=== PATIENT | male | born 1975 | race Caucasian/White ===

== ENCOUNTER 2016-12-01 19:55 | Emergency (ER) | payer OTHER ==
[~2016-12-01] VITALS: Ht 177.8 cm; Wt 64.0 kg
[2016-12-01 20:02] VITALS: Ht 177.8 cm; Wt 64.0 kg
--- NOTE | 2016-12-01 22:19 | RADRPT ---
PROCEDURE: CT Head without contrast. CLINICAL INDICATION: Headaches TECHNIQUE: The study was performed utilizing a GE 64-slice multidetector CT scanner. Direct spiral axial CT images of the brain were obtained from the vertex to the skull base without contrast. Cor onal and sagittal reformat images are provided. The CTDI vol is 44.84 mGy and the DLP is 720.23 mGy -cm. The images were reviewed on a PACS workstation. COMPARISON: No prior studies are available for comparison. FINDINGS: The ventricles and cortical sulci are within normal limits. A polo cisterna magna is seen. The ngo- white matter differentiation is maintained. No intra or extra-axial fluid collection or mass effect or shift in the midline structures is seen. The visualized paranasal sinuses, mastoid air cells, o rbits, and calvarium are unremarkable. IMPRESSION: No acute intracranial pathology. RPTAT: HPNM Physician Alexis Date Time Electronically viewed and signed by Physician Alexis on 12/01/2016 22:18 /
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
== END 2016-12-01 23:10 | disposition home or self-care (01) ==
LOC: FTE 19:55
DX: S09.90XA Unspecified injury of head, initial encounter (principal); F17.210 Nicotine dependence, cigarettes, uncomplicated; R51 Headache; V89.2XXA Person injured in unspecified motor-vehicle accident, traffic, initial encounter
CPT/HCPCS: 70450; Z7502